=== PATIENT | male | born 1985 | race Caucasian/White ===

== ENCOUNTER 2017-06-21 08:55 | Emergency (ER) | payer MEDICAID ==
[~2017-06-21] VITALS: Ht 182.9 cm; Wt 70.0 kg
[2017-06-21 08:56] VITALS: BP 127/93
[2017-06-21] MEDS ORDERED: ONDANSETRON ODT 4 MG ONE (09:26)
[2017-06-21] MEDS ORDERED: ONDANSETRON ODT 4 MG PO ONE (09:30)
== END 2017-06-21 10:30 | disposition home or self-care (01) ==
LOC: ED 09:34
DX: R11.2 Nausea with vomiting, unspecified (principal); R63.0 Anorexia
CPT/HCPCS: 99283; Q0162

== ENCOUNTER 2017-06-21 12:14 | Emergency (ER) | payer MEDICAID ==
[~2017-06-21] VITALS: Ht 182.9 cm; Wt 70.0 kg
[2017-06-21] MEDS ORDERED: ONDANSETRON 2MG/ML, 2ML IVPush ONE (12:30)
[2017-06-21] MEDS ORDERED: METOCLOPRAMIDE 5 MG/ML, 2ML IVPush ONE (12:30)
[2017-06-21] MEDS ORDERED: SODIUM CHLORIDE FLUSH 10ML SYR IVF ONE (12:30)
[2017-06-21] MEDS ORDERED: DIPHENHYDRAMINE 50 MG/ML, 1ML IVPush ONE (12:30)
[2017-06-21] MEDS ORDERED: SODIUM CHLORIDE 0.9% 1,000ML IVBOLUS ONE (12:30)
[2017-06-21] MEDS ORDERED: DIPHENHYDRAMINE 50 MG/ML, 1ML ONE (12:46)
[2017-06-21] MEDS ORDERED: ONDANSETRON 2MG/ML, 2ML ONE (12:46)
[2017-06-21] MEDS ORDERED: METOCLOPRAMIDE 5 MG/ML, 2ML ONE (12:46)
[2017-06-21 12:56] LABS: HEMATOCRIT 44.8 % (39.2-51.8); HEMOGLOBIN 15.3 g/dL (13.7-18.0); WHITE BLOOD COUNT 11.8 x10^3/uL (3.4-10)
[2017-06-21 13:08] LABS: ASPARTATE AMINO TRANSFERASE 29 U/L (15-37); BLOOD UREA NITROGEN 18 mg/dL (7-18)
[2017-06-21 15:04] VITALS: BP 115/66
== END 2017-06-21 15:06 | disposition home or self-care (01) ==
LOC: ED 14:15
DX: R11.2 Nausea with vomiting, unspecified (principal); R19.7 Diarrhea, unspecified; Z59.0 Homelessness
CPT/HCPCS: 36415; 80053; 83690; 85025; 96361; 96374; 96375; 99285; J1200; J2405; J2765; J7030

== ENCOUNTER 2020-10-27 02:44 | Emergency (ER) | payer SELFPAY ==
[~2020-10-27] VITALS: Ht 177.8 cm; Wt 78.0 kg
--- NOTE | 2020-10-27 03:15 | NUR ---
PT AGGITATED AND EXHIBITING VIOLENT BEHAVIOR WITH VERBAL THREATS TO STAFF. PT ADMITS TO SMOKING METH AND SEEING AND HEARING THINGS. PATIENT CAN NOT BE REDIRECTED OR FOLLOW SIMPLE COMMANDS. PT RESTRAINED FOR STAFF AND PT SAFETY. PT IN ROOM WITH FOUR POINT VIOLENT RESTRAINTS. PT MOVED TO PSYCH SECURE ROOM 40 AND REPORT TO FOLLOW TO PSYCH/SHOPPER INSIGHTS MANAGERKYLIE CARNEY
--- NOTE | 2020-10-27 03:24 | NUR ---
report to Zahida ESPINAL
--- NOTE | 2020-10-27 03:26 | NUR ---
REPORT RECIEVED FROM KYLIE LANGLEY.
--- NOTE | 2020-10-27 03:28 | NUR ---
PATIENT IN ROOM WITH FOUR POINT VIOLENT RESTRAINTS. PATIENT CONTINUES TO SCREAM PERIODICALLY WITH SPASTIC MOVEMENTS. PATIENT CAN NOT BE REDIRECTED OR FOLLOW SIMPLE ONE STEP COMMANDS. PATIENT INFORMED OF RESTRAINT DISCONTINUE CRITERIA, NO EVIDENCE OF LEARNING EXHIBITED.
[2020-10-27] MEDS ORDERED: ZIPRASIDONE 20 MG INJ IM ONE (03:30)
[2020-10-27] MEDS ORDERED: LORazepam 2 MG/ML, 1ML IM PRN (03:30)
[2020-10-27 03:57] LABS: BASOPHILS % (AUTO) 1 % (0-1); EOSINOPHILS % (AUTO) 1 % (1-7); LYMPHOCYTES % (AUTO) 12 % (22-44); MEAN CORPUSCULAR HEMOGLOBIN 30.4 pg (27.5-34.5); MEAN CORPUSCULAR HGB CONC 34.1 g/dL (33.2-36.2); MEAN PLATELET VOLUME 7.8 fL (7.4-10.4); MONOCYTES % (AUTO) 7 % (2-9); NEUTROPHILS % (AUTO) 79 % (42-75); PLATELET COUNT 244 x10^3/uL (130-400); RED BLOOD COUNT 4.51 x10^6/uL (4.38-5.82); RED CELL DISTRIBUTION WIDTH 13.5 % (9.4-14.8)
[2020-10-27 03:58] LABS: MD NO
[2020-10-27 04:04] LABS: ALANINE AMINOTRANSFERASE 27 U/L (12-78); ALBUMIN 4.2 g/dL (3.4-5.0); ANION GAP 9 mmol/L (5-15); CALCIUM 8.6 mg/dL (8.5-10.1); CHLORIDE 108 mmol/L (98-107); CREATININE 1.09 mg/dL (0.7-1.3); SALICYLATE LEVEL 3.4 mg/dL (2.8-20.0)
--- NOTE | 2020-10-27 04:04 | NUR ---
PATIENT IS CALM AND COLLECTED. RESTING IN BED, NO NOTED ACUTE DISTRESS. EVEN-UNLABORED RESPIRATIONS NOTED. RESTRAINTS REMOVED. NO EVIDENCE OR SIGNS OF INJURY UPON RELEASE.
[2020-10-27 04:06] LABS: ALKALINE PHOSPHATASE 104 U/L (45-117); BILIRUBIN,TOTAL 0.5 mg/dL (0.2-1.0); TOTAL PROTEIN 7.6 g/dL (6.4-8.2)
--- NOTE | 2020-10-27 04:10 | NUR ---
PT RESTING ON MANUELITO PÉREZ NOW IN [facility] FOR SAFETY
--- NOTE | 2020-10-27 05:00 | NUR ---
PATIENT RESTING IN BED, EVEN-UNLABORED RESPIRATIONS NOTED. NO NOTED NEEDS AT THIS TIME. SITTER WITHIN VIEW OF PATIENT. WILL CONTINUE TO MONITOR.
--- NOTE | 2020-10-27 06:41 | NUR ---
PATIENT RESTING IN BED, EVEN-UNLABORED RESPIRATIONS NOTED. NO NOTED NEEDS AT THIS TIME. SITTER WITHIN VIEW OF PATIENT. WILL CONTINUE TO MONITOR.
[2020-10-27 06:52] VITALS: BP 98/61
--- NOTE | 2020-10-27 06:56 | NUR ---
REPORT GIVEN TO SOPHIE ESPINAL
--- NOTE | 2020-10-27 06:59 | NUR ---
REPORT RECEIVED FROM KYLIE CARNEY FOR TRANSFER OF PATIENT CARE.
--- NOTE | 2020-10-27 07:32 | NUR ---
BREAKFAST TRAY ORDERED.
--- NOTE | 2020-10-27 08:19 | NUR ---
BREAKFAST TRAY PROVIDED, NADN, SUICIDE PRECAUTIONS IN PLACE, SITTER IN DOORWAY.
--- NOTE | 2020-10-27 09:26 | NUR ---
PATIENT RESTING IN GURNEY WITH EYES CLOSED, RESP EVEN AND UNLABORED, SUICIDE PRECAUTIONS IN PLACE, SITTER IN DOORWAY.
--- NOTE | 2020-10-27 09:51 | NUR ---
REPORT GIVEN TO KYLIE BAUMAN FOR TRANSFER OF PATIENT CARE.
--- NOTE | 2020-10-27 10:00 | NUR ---
REPORT RECIVED. PT RESTING IN BED
--- NOTE | 2020-10-27 11:00 | NUR ---
PT SLEEPING. SITTER IN THE [place]
--- NOTE | 2020-10-27 12:00 | NUR ---
PT SLEEPING. SITTER IN THE [place]
--- NOTE | 2020-10-27 13:02 | NUR ---
PT GIVEN BELONGINGS. RESTING IN ROOM REFUSED VITALS.
--- NOTE | 2020-10-27 13:15 | NUR ---
SEEN BY PSYCH LATEX CASTER. PT WALKED OUT SELF WITH STEADY GAIT. REFUSED VITAL SIGNS. GIVEN TAXI VOUCHER. GIVEN RX. PT STATED THAT HE WASN'T GOING TO USE THE RX OR TAXI VOUCHER.
== END 2020-10-27 13:19 | disposition home or self-care (01) ==
LOC: ED 03:05
DX: F15.150 Other stimulant abuse with stimulant-induced psychotic disorder with delusions (principal); R44.1 Visual hallucinations; F17.200 Nicotine dependence, unspecified, uncomplicated
CPT/HCPCS: 36415; 80053; 80299; 80320; 80329; 85025; 96372; 99284; J2060; J3486; G0480

== ENCOUNTER 2021-04-23 20:00 | Observation (INO) | payer SELFPAY ==
[~2021-04-23] VITALS: Ht 182.9 cm; Wt 75.0 kg
--- NOTE | 2021-04-23 20:06 | NUR ---
Break RN: Pt arrived via EMS for being found unresponsive in the street by [employer]. [employer] awoke pt via sternal rub where he then became agressive and combative with [employer] and EMS. Pt arrived in restraints due to combative nature, securivty helped place pt in restraints until he can be reevaluated in a safe manner. Pt also arrived with no real chief complaint. When asked what he needed help with pt would ramble and use word salad sentences. Pt stated "I'm were all , this atmosphere fucking sucks". To which this RN asked pt if there was anything we can help him with and he began on another tangent about conspiracy theroies. All VSS, NADN, WCTM.
[2021-04-23] MEDS ORDERED: HALOPERIDOL 5 MG/ML IM PRN (20:30)
[2021-04-23] MEDS ORDERED: DIPHENHYDRAMINE 50 MG/ML, 1ML IM PRN (20:30)
[2021-04-23] MEDS ORDERED: LORazepam 2 MG/ML, 1ML IM PRN (20:30)
[2021-04-23] MEDS ORDERED: DIPHENHYDRAMINE 50 MG/ML, 1ML ONE (20:32)
[2021-04-23] MEDS ORDERED: HALOPERIDOL 5 MG/ML ONE (20:32)
[2021-04-23] MEDS ORDERED: LORazepam 2 MG/ML, 1ML ONE (20:33)
--- NOTE | 2021-04-23 21:19 | NUR ---
PT MEDICATED PER ORDERS WITH SECURITY ASSISTANCE. REMAINS IN 4-POINT RESTRAINTS DUE TO AGGRESSIVE BEHAVIORS AND YELLING AT STAFF, "YOU NEED TO !". HAS REFUSED BLOOD DRAW SO FAR AND TRIES TO HIT STAFF WHEN ATTEMPTING BLOOD DRAW. Addendum: 04/24/21 at 0104 by HBENSON PT ON ALL MONITORS.
--- NOTE | 2021-04-23 22:21 | NUR ---
PT RESTING IN GURNEY, VSS, NO S/S OF DISTRESS.
--- NOTE | 2021-04-23 23:38 | NUR ---
PT HAS BEEN RESTING IN GURNEY, REPOSITIONS SELF. OPENS EYES AND RESPONDS TO VOICE. HAS NOT BEEN AGGRESSIVE TOWARDS STAFF. WILL REMOVE ALL RESTRAINTS.
[2021-04-23 23:44] VITALS: BP 97/66
[2021-04-23 23:48] LABS: BASOPHILS % (AUTO) 1 % (0-1); EOSINOPHILS % (AUTO) 1 % (1-7); LYMPHOCYTES % (AUTO) 15 % (22-44); MEAN CORPUSCULAR HEMOGLOBIN 30.8 pg (27.5-34.5); MEAN CORPUSCULAR HGB CONC 34.8 g/dL (33.2-36.2); MEAN PLATELET VOLUME 7.5 fL (7.4-10.4); MONOCYTES % (AUTO) 9 % (2-9); NEUTROPHILS % (AUTO) 75 % (42-75); PLATELET COUNT 264 x10^3/uL (130-400); RED BLOOD COUNT 4.62 x10^6/uL (4.38-5.82); RED CELL DISTRIBUTION WIDTH 13.6 % (9.4-14.8)
[2021-04-24] LABS: ALANINE AMINOTRANSFERASE 28 U/L (12-78); ANION GAP 6 mmol/L (5-15); CALCIUM 9.4 mg/dL (8.5-10.1); CHLORIDE 103 mmol/L (98-107); CREATININE 0.98 mg/dL (0.7-1.3); SALICYLATE LEVEL 2.1 mg/dL (2.8-20.0)
[2021-04-24 00:03] LABS: ALKALINE PHOSPHATASE 86 U/L (45-117); BILIRUBIN,TOTAL 1.7 mg/dL (0.2-1.0); TOTAL PROTEIN 7.8 g/dL (6.4-8.2)
--- NOTE | 2021-04-24 00:28 | NUR ---
ERP IN FOR RECHECK.
--- NOTE | 2021-04-24 00:54 | NUR ---
Report from Tammie ESPINAL
--- NOTE | 2021-04-24 01:30 | NUR ---
attempt to road test, pt swaying and unsteady
== END 2021-04-24 03:21 | disposition home or self-care (01) ==
LOC: ED 21:10 → EDIP 22:41 → INTOOBSV 22:41
PROVIDERS: ADMIT Emergency Medicine; ATTEND Emergency Medicine
DX: F15.20 Other stimulant dependence, uncomplicated (principal); F17.200 Nicotine dependence, unspecified, uncomplicated; Z78.1 Physical restraint status; Z79.899 Other long term (current) drug therapy
CPT/HCPCS: 36415; 80053; 80299; 80320; 80329; 85025; 96372; 99284; G0378; J1200; J1630; J2060; G0480